=== PATIENT | female | born 1980 | race Caucasian/White ===

== ENCOUNTER 2017-05-17 15:20 | Emergency (ER) | payer BC ==
[2017-05-17 16:12] VITALS: BP 141/92
--- NOTE | 2017-05-17 17:14 | EDM.PDOC ---
ED HPI GENERAL MEDICAL PROBLEM - General Chief Complaint: Headache Stated Complaint: HEAD PAIN Time Seen by Provider: 05/17/17 16:40 Source of Information: Reports: Patient - History of Present Illness INITIAL COMMENTS - FREE TEXT/NARRATIVE: Patient is a 37-year-old female presents ED complaining of left-sided headache. Patient states headache started approximately one week ago and has been off and on with intermittent worsening discomfort. She's had some sinus congestion approximate one half weeks that comes and goes. States with breathing through her nose she has some discomfort to the left maxillary sinus. This is intermittent as well. She has history of headaches with similar symptoms. This is not described as worse headache of her life. It is a throbbing sensation that encompasses the left side of her head. There is no photophobia or hyperacusis. She denies any sore throat, fever, teeth pain, nausea vomiting, focal neurological deficits, stiff neck, or any additional complaints. She's been eating and drinking well. Takes Tylenol and ibuprofen on intermittent basis. Left Head Pain Score (Numeric/FACES): 3 - Related Data Allergies Allergy/AdvReac Type Severity Reaction Status Date / Time No Known Allergies Allergy Verified 03/09/14 04:49 Home Meds: Home Meds Acetaminophen [Tylenol] 650 mg PO Q6H PRN #50 tablet 03/11/14 [Rx] Past Medical History Gastrointestinal History: Reports: Other (See Below) Other Gastrointestinal History: elevated liver enyzmes-liver biopsy Social & Family History - Tobacco Use Smoking Status *Q: Current Every Day Smoker Years of Tobacco use: 21 Packs/Tins Daily: 0.7 Used Tobacco, but Quit: No Second Hand Smoke Exposure: No - Caffeine Use Caffeine Use: Reports: Soda, Tea - Alcohol Use Days Per Week of Alcohol Use: 0 - Recreational Drug Use Recreational Drug Use: No ED ROS ENT - Review of Systems Review Of Systems: ROS reveals no pertinent complaints other than HPI. ED EXAM, ENT - Physical Exam Exam: See Below Exam Limited By: No Limitations General Appearance: Alert, WD/WN, No Apparent Distress Eye Exam: Bilateral Eye: EOMI, Nystagmus, PERRL Ears: Normal External Exam, Normal Canal, Hearing Grossly Normal, Normal TMs Nose: Normal Inspection, Nasal Discharge (Clear), Nasal Swelling, Injected Turbinates Mouth/Throat: Normal Inspection, Normal Oropharynx Head: Atraumatic, Normocephalic Neck: Normal Inspection, Supple, Non-Tender, Full Range of Motion Respiratory/Chest: No Respiratory Distress, Lungs Clear, Normal Breath Sounds, No Accessory Muscle Use, Chest Non-Tender Cardiovascular: Normal Peripheral Pulses, Regular Rate, Rhythm GI/Abdominal: Normal Bowel Sounds, Soft, Non-Tender, No Organomegaly, No Distention Back: Normal Inspection Neurological: Alert, Oriented, CN II-XII Intact, Normal Cognition, Normal Gait, No Motor/Sensory Deficits Psychiatric: Normal Affect, Normal Mood Skin: Warm, Dry, Intact, Normal Color, No Rash Course - Vital Signs Last Recorded V/S: Last Vital Signs Temp 98.7 F 05/17/17 16:11 Pulse 102 H 05/17/17 16:11 Resp 20 05/17/17 16:11 BP 141/92 H 05/17/17 16:11 Pulse Ox 99 05/17/17 16:11 - Re-Assessments/Exams Free Text/Narrative Re-Assessment/Exam: Patient is a viral upper respiratory infection. I will call this viral sinusitis. No therapy is required in the ED. Will discharge patient home with instructions as documented. Departure - Departure Time of Disposition: 17:12 Disposition: Home, Self-Care 01 Condition: Good Clinical Impression: Sinusitis Sinusitis Qualifiers: Sinusitis location: unspecified location Chronicity: acute Recurrence: non- recurrent Qualified Code(s): J01.90 - Acute sinusitis, unspecified - Discharge Information Instructions: Sinusitis, Adult, Sinus Headache, [id number] Referrals: PCP,None [Primary Care Provider] - Forms: ED Department Discharge Additional Instructions: You have viral sinusitis. As discussed use Flonase 1 spray to each naris twice a day, Afrin 1 spray to each and air twice a day for only 3 days, nasal saline spray as frequently as needed throughout the course today for nasal congestion, dryness, and discomfort. Utilize Tylenol and ibuprofen in alternating fashion for discomfort. Utilize a coolmist humidifier when sleeping. Follow-up with your primary care provider in one week if symptoms are not improving. Return to the ED if you develop any new or worsening symptoms.
== END 2017-05-17 17:33 | disposition home or self-care (01) ==
LOC: JD.ED 15:20
DX: J01.90 Acute sinusitis, unspecified (principal); F17.210 Nicotine dependence, cigarettes, uncomplicated
CPT/HCPCS: 99282; 99284

== ENCOUNTER 2018-07-20 08:10 | Emergency (ER) | payer OTHER, BC ==
[2018-07-20 08:28] VITALS: BP 126/74
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
--- NOTE | 2018-07-20 09:39 | CR ---
Cervical spine: AP, lateral and odontoid views of the cervical spine were obtained. Comparison: No previous study. Moderate disc space narrowing is noted at C4-C5 and C5-C6. Slight posterior osteophytes are noted at C5-C6. Other disc spaces are maintained. Vertebral body heights are maintained. Prevertebral soft tissues are normal. No subluxation or fracture seen. Slight degenerative spurring is noted within the uncovertebral joints at C5-C6. Impression: 1. Mild degenerative change. 2. Nothing acute is appreciated on three-view cervical spine exam. Diagnostic code #2
== END 2018-07-20 09:26 | disposition home or self-care (01) ==
LOC: JD.ED 08:10
DX: S16.1XXA Strain of muscle, fascia and tendon at neck level, initial encounter (principal); F17.210 Nicotine dependence, cigarettes, uncomplicated; V40.5XXA Car driver injured in collision with pedestrian or animal in traffic accident, initial encounter; Y92.411 Interstate highway as the place of occurrence of the external cause
CPT/HCPCS: 72040; 72040-26; 99283; 99283-25

== ENCOUNTER 2020-04-01 15:54 | Emergency (ER) | payer BC ==
--- NOTE | 2020-04-01 17:04 | EDM.PDOC ---
ED HPI GENERAL MEDICAL PROBLEM - General Chief Complaint: Headache Stated Complaint: HIGH BP/HEADACHE Time Seen by Provider: 04/01/20 16:21 Source of Information: Reports: Patient, RN Notes Reviewed History Limitations: Reports: No Limitations - History of Present Illness INITIAL COMMENTS - FREE TEXT/NARRATIVE: Patient is a 39-year-old female who presents to the ED for evaluation of her high blood pressure readings at home, and a headache. Patient notes she has been having a diffuse headache, that feels like quite a bit of pressure. She states that is also somewhat behind her eyes. 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 When she presents to the ER, blood pressure is 139/80, pulse is 90 bpm, respiratory rate of 20 rest per minute, O2 sats 96% on room air. Her temperature is mildly elevated at 100.2 F. She has been having issues with sinusitis in the past, so she thought this could be sinus congestion so she took a tablet of phenylephrine, but this did not seem to help. Patient notes that she recently got her second dose of COVID-19 vaccine, roughly 4 or 5 days ago. She was not sure if all of the symptoms could be due to that, but is mainly worried about her blood pressure readings. She is not reported any fevers or chills at home, no nausea/vomiting/diarrhea, she states that she does have a headache, feels generalized fatigue, and has not had much of an appetite over the last few days. But she also states she is trying to watch her diet as well. Frontal Headache Pain Score (Numeric/FACES): 5 - Related Data Allergies Allergy/AdvReac Type Severity Reaction Status Date / Time No Known Allergies Allergy Verified 07/20/18 08:21 Home Meds: Home Meds Acetaminophen [Tylenol] 650 mg PO Q6H PRN #50 tablet 03/11/14 [Rx] Ibuprofen [Motrin] 800 mg PO ASDIRECTED 04/01/20 [History] Past Medical History - Past Health History Medical/Surgical History: Denies Medical/Surgical History Gastrointestinal History: Reports: Other (See Below) Other Gastrointestinal History: elevated liver enyzmes-liver biopsy Social & Family History - Tobacco Use Tobacco Use Status *Q: Current Every Day Tobacco User Years of Tobacco use: 15 Packs/Tins Daily: 1 - Caffeine Use Caffeine Use: Reports: Soda - Recreational Drug Use Recreational Drug Use: No ED ROS GENERAL - Review of Systems Review Of Systems: Comprehensive ROS is negative, except as noted in HPI. - Physical Exam Exam: See Below Exam Limited By: No Limitations General Appearance: Alert, WD/WN, No Apparent Distress Respiratory/Chest: No Respiratory Distress, Lungs Clear, Normal Breath Sounds, No Accessory Muscle Use, Chest Non-Tender Cardiovascular: Normal Peripheral Pulses, Regular Rate, Rhythm, No Edema GI/Abdominal: Normal Bowel Sounds, Soft, Non-Tender, No Distention, No Mass Neuro Exam (Abbreviated): Alert, Oriented, Normal Cognition, No Motor/Sensory Deficits Extremities: Normal Inspection, Normal Capillary Refill Psychiatric: Normal Affect, Normal Mood Skin Exam: Warm, Dry, Intact, Normal Color, No Rash Course - Vital Signs Last Recorded V/S: Last Vital Signs Temp 100.2 F 04/01/20 16:06 Pulse 90 04/01/20 16:06 Resp 20 04/01/20 16:06 BP 139/80 04/01/20 16:06 Pulse Ox 96 04/01/20 16:06 - Re-Assessments/Exams Free Text/Narrative Re-Assessment/Exam: 04/01/20 17:02 Patient presents to the ED for evaluation of her high blood pressure and headache. I did offer to give medications for the headache however she states she will just take some Tylenol at home. I do believe most of her symptoms are due to lingering effects after the second dose of the COVID-19 vaccine. Patient will be placed on the networking engineer and we will monitor her blood pressures for a few cycles and hopefully discharge her home with general recommendations. 04/01/20 17:26 Patient's blood pressures have all been within normal limits, her last blood pressure is 124/74. Departure - Departure Time of Disposition: 17:27 Disposition: Home, Self-Care 01 Condition: Good Clinical Impression: Elevated blood pressure reading, Fatigue after COVID-19 vaccination, Headache after vaccination - Discharge Information *PRESCRIPTION DRUG MONITORING PROGRAM REVIEWED*: No *COPY OF PRESCRIPTION DRUG MONITORING REPORT IN PATIENT ERROL: No Instructions: Preventing Hypertension Referrals: PCP,None [Primary Care Provider] - Forms: ED Department Discharge Additional Instructions: You were evaluated in the ER today for your elevated blood pressure readings at home, and generalized symptoms. Blood pressures in the ER were within normal limits; I recommend you go home, take your blood pressure 2 times a day, and note these numbers and discuss them with your primary care provider this following week. Many of her other generalized symptoms can be explained by a reaction to your second dose of COVID-19 vaccine. You may take Tylenol/ibuprofen every 6 hours as needed for further headache/discomfort. Please return to the ER at any time if symptoms change or worsen. Sepsis Event Note (ED) - Evaluation Sepsis Screening Result: No Definite Risk - Focused Exam Vital Signs: Vital Signs Temp Pulse Resp BP Pulse Ox 04/01/20 16:06 100.2 F 90 20 139/80 96
[2020-04-01 17:41] VITALS: BP 122/75; PULSE 74
== END 2020-04-01 17:42 | disposition home or self-care (01) ==
LOC: JD.ED 15:54
DX: G44.40 Drug-induced headache, not elsewhere classified, not intractable (principal); R53.83 Other fatigue; T50.B95A Adverse effect of other viral vaccines, initial encounter; R03.0 Elevated blood-pressure reading, without diagnosis of hypertension; Z72.0 Tobacco use
CPT/HCPCS: 99283

== ENCOUNTER 2022-12-14 17:12 | Emergency (ER) | payer BC ==
[2022-12-14 17:34] VITALS: PULSE 78
[2022-12-14] MEDS ORDERED: Aspirin 81 MG Tab.Chew PO ONE (17:40)
[2022-12-14] MEDS ORDERED: Sodium Chloride 0.9% 10 ML Syringe FLUSH PRN (17:40)
[2022-12-14 18:10] LABS: BASOPHILS PERCENT AUTO 0.4 % (0.0-1.0); EOSINOPHILS ABSOLUTE AUTO 0.2 K/mm3 (0.0-0.4); EOSINOPHILS PERCENT AUTO 2.3 % (0.0-6.0); HEMATOCRIT 39.4 % (37.0-47.0); HEMOGLOBIN 13.4 gm/dl (12.0-16.0); IMMATURE GRAN ABSOLUTE AUTO 0.04 K/mm3 (0.00-0.05); IMMATURE GRAN PERCENT AUTO 0.5 % (0.0-0.4); LYMPHOCYTES ABSOLUTE AUTO 2.8 K/mm3 (1.0-4.8); LYMPHOCYTES PERCENT AUTO 35.1 % (24.0-44.0); MEAN CORPUSCULAR HEMOGLOBIN 33.1 pg (28.0-32.0); MEAN CORPUSCULAR VOLUME 97.3 fl (83.0-99.0); MEAN PLATELET VOLUME 8.9 fl (9.4-12.3); MONOCYTES ABSOLUTE AUTO 0.6 K/mm3 (0.0-0.8); MONOCYTES PERCENT AUTO 7.1 % (0.0-8.0); NEUTROPHILS ABSOLUTE AUTO 4.3 K/mm3 (1.8-7.7); NEUTROPHILS PERCENT AUTO 54.6 % (41.0-71.0); PLATELET COUNT,PLT 264 K/mm3 (150-400); RED BLOOD CELL COUNT 4.05 M/mm3 (4.10-5.30); WHITE BLOOD CELL COUNT,WBC 7.91 K/mm3 (3.9-11.3)
[2022-12-14 18:41] LABS: ALANINE AMINOTRANSFERASE,ALT 35 U/L (14-59); ALBUMIN 3.6 g/dl (3.4-5.0); ALKALINE PHOSPHATASE 69 U/L (46-116); ANION GAP 13.8 (5-15); ASPARTATE AMNIOTRANSFERASE,AST 21 U/L (15-37); BILIRUBIN TOTAL 0.3 mg/dL (0.2-1.0); BLOOD UREA NITROGEN,BUN 16 mg/dL (7-18); CALCIUM 9.3 mg/dL (8.5-10.1); CARBON DIOXIDE,CO2 26 mEq/L (21-32); CHLORIDE,CL 103 mEq/L (98-107); CREATININE 0.8 mg/dL (0.55-1.02); ESTIMATED GFR 95 mL/min (>60); GLUCOSE RANDOM 95 mg/dL (70-99); POTASSIUM,K 3.8 mEq/L (3.5-5.1); PROTEIN TOTAL,TP 7.2 g/dl (6.4-8.2); SODIUM,NA 139 mEq/L (136-145)
[2022-12-14 18:42] LABS: TROPONIN I HIGH SENSITIVITY < 4 pg/mL (<=51)
[2022-12-14 19:21] VITALS: BP 142/90
== END 2022-12-14 19:10 | disposition home or self-care (01) ==
LOC: JD.ED 17:12
DX: R07.89 Other chest pain (principal); F17.210 Nicotine dependence, cigarettes, uncomplicated
CPT/HCPCS: 36415; 71046; 80053; 84484; 85025; 85379; 93005; 99285; A9270; 93010; 99284